=== PATIENT | male | born 2005 | race Two or more races ===

== ENCOUNTER 2023-11-11 13:02 | Emergency (ER) | payer OTHER ==
[2023-11-11 13:21] VITALS: BP 128/69; O2SAT 96
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
[2023-11-11] MEDS: dexAMETHasone 4 MG TABLET PO STA (15:24)
[2023-11-11] MEDS: EMOLLIENT CREAM 57 GM TUBE TOP STA (15:25)
[2023-11-11] MEDS: CETIRIZINE 10 MG TABLET PO STA (15:25)
[2023-11-11] MEDS: LIDOCAINE OINTMENT 5% 35.44 GM TUBE TOP STA (15:25)
== END 2023-11-11 15:34 | disposition home or self-care (01) ==
LOC: ED 13:02
DX: L24.5 Irritant contact dermatitis due to other chemical products (principal); Z77.098 Contact with and (suspected) exposure to other hazardous, chiefly nonmedicinal, chemicals
CPT/HCPCS: 99283; A9270; J8540